=== PATIENT | female | born 1980 | race Two or more races ===

== ENCOUNTER 2020-01-04 08:00 | Inpatient (IN) | payer OTHER ==
[2020-01-10] MEDS ORDERED: ELECTROLYTE-148 SOLN 500 ML IV SCH ×2 (06:00→06:30)
[2020-01-10] MEDS ORDERED: CITRIC ACID/SODIUM CITRATE 30 ML UNIT-DOSE CUP PO ONE ×2 (06:00→09:53)
[2020-01-10 07:12] VITALS: BMI 29.2
[2020-01-10] MEDS ORDERED: ONDANSETRON 4 MG/2 ML VIAL IVPUSH PRN (07:41)
[2020-01-10] MEDS ORDERED: morphine SULFATE/PF 0.5 MG/ML (2cc Syringe - QUVA) EP ONE (07:41)
[2020-01-10] MEDS ORDERED: morphine SULFATE/Preservative Free 0.5 MG/ML (1cc Syringe) ONE (07:51)
[2020-01-10] MEDS ORDERED: ceFAZolin SODIUM 1 GM VIAL ONE (07:52)
[2020-01-10] MEDS ORDERED: OXYTOCIN 10 UNITS/ML VIAL ONE ×2 (08:44→09:17)
--- NOTE | 2020-01-10 09:39 | PN ---
Progress Note (short form) - Note Progress Note: I assisted Dr. Weber at the c/section for the entirety of the case.
--- NOTE | 2020-01-10 09:46 | HP ---
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: No: Alzheimer's, CVA, Dementia, Migraine, Multiple Sclerosis, Peripheral Neuropathy, Parkinson's, Seizure, Syncope, TIA, Vertigo, Other Cardiovascular: No: AFIB, Aneurysm, Aortic Insufficiency, Aortic Stenosis, CAD, CHF, Deep Vein Thrombosis, HTN, Hyperlipdemia, MD, Mitral Insufficiency, Mitral Stenosis, Murmur, Pulmonary Hypertension, Other Pulmonary: No: Asthma, Bronchitis, Cancer, COPD, O2 Dependent, Pneumonia, Previously Intubated, Pulmonary Embolus, Pulmonary Fibrosis, Sleep Apnea, Other Gastrointestinal: No: Ascites, Cancer, Constipation, Crohn's Disease, Diverticulitis, Diverticulosis, Esophageal Varices, Gastritis, GERD, GI Bleed, Hemorrhoids, Hiatal Hernia, Inflamatory Bowel Disease, Irritable Bowel Disease, Pancreatitis, Peptic Ulcer Disease, Ulcerative Colitis, Other Hepatobiliary: No: Cirrhosis, Cholelithiasis, Cholecystitis, Choledocholithiasis, Hepatitis A, Hepatitis B, Hepatitis C, Other Renal/: No: Renal Failure, Renal Inusuff, BPH, Cancer, Hematuria, Hemodi alysis, Neurogenic Bladder, Renal Calculi, UTI, Other Reproductive: No: Ectopic , Endometriosis, Fibroids, PID, Polycystic Ovary Syndrome, Postmenopausal, Other ...: 1 ...Para: 0 ...Term: 0 ...: 0 ...Spon : 0 ...Induced : 0 ...Living Children: 0 ...Multiple Gestation: 0 ...EDC by Sono: 01/29/20 Heme/Onc: No: Anemia, B12 Deficiency, Bleeding Disorder, Cancer, Current Chemotherapy, Current Radiation Therapy, Hemochromatosis, Hypercoaguable State, Myeloproliferative Synd, Sickle Cell Disease, Sickle Cell Trait, Thrombocytopenia, Other Infectious Disease: No: AIDS, C-Diff, Herpes Zoster, HIV, MRSA, STD's, Tuberculosis, VREF, Other Psych: No: Addictions, Anxiety, Bipolar, Depression, Panic, Psychosis, Schizophrenia, Other Musculoskeletal: No: Bursitis, Chronic low back pain, Hemiparesis, Hemiplegia, Osteoarthritis, Paraplegia, Other Rheumatology: No: Fibromyalgia, Gout, Lupus, Rheumatoid Arthritis, Sarcoidosis, Vasculitis, Other ENT: No: Allergic Rhinitis, Sinusitis, Other Endocrine: No: Sean's Disease, Rugby's Disease, Diabetes Insipidus, Diabetes Mellitus, Hyperparathyroidism, Hyperthyroidism, Hypothyroidism, Osteope patricia, SIADH, Other Dermatology: No: Basal Cell, Cellulitis, Eczema, Melanoma, Psoriasis, Squamous Cell, Other - Past Surgical History Hx Myomectomy: No Hx Transabdominal Cerclage: No Additional Surgical History: abdominal plasty - Advance Directives Advance Directives: Yes: Living Will - Smoking History Smoking history: Never smoked Have you smoked in the past 12 months: No - Alcohol/Substance Use Hx Alcohol Use: No History of Substance Use: reports: None - Social History Usual Living Arrangement: Yes: With Significant Other Do you think of yourself as: Straight/Heterosexual ADL: Independent History of Recent Travel: No Home Medications - Allergies Allergies/Adverse Reactions: Allergies Allergy/AdvReac Type Severity Reaction Status Date / Time No Known Allergies Allergy Verified 01/10/20 07:03 - Home Medications Home Medications: Ambulatory Orders Vitamins (Sjr) - 1 tab PO DAILY 01/10/20 Family Medical History Family History: Denies Review of Systems - Review of Systems Constitutional: reports: No Symptoms Eyes: reports: No Symptoms HENT: reports: No Symptoms Neck: reports: No Symptoms Cardiovascular: reports: No Symptoms Respiratory: reports: No Symptoms Gastrointestinal: reports: No Symptoms Genitourinary: reports: No Symptoms Breasts: reports: No Symptoms Reported Musculoskeletal: reports: No Symptoms Integumentary: reports: No Symptoms Neurological: reports: No Symptoms Endocrine: reports: No Symptoms Hematology/Lymphatic: reports: No Symptoms Psychiatric: reports: No Symptoms Physical Exam - Maternity Vital Signs: Vital Signs Temperature 98.3 F 01/10/20 06:30 Pulse Rate 115 H 01/10/20 06:30 Respiratory Rate 20 01/10/20 06:30 Blood Pressure 121/71 01/10/20 06:30 O2 Sat by Pulse Oximetry (%) Constitutional: Yes: Well Nourished, No Distress, Calm Eyes: Yes: WNL, Conjunctiva Clear, EOM Intact HENT: Yes: WNL, Atraumatic, Normocephalic Neck: Yes: WNL, Supple, Trachea Midline Cardiovascular: Yes: WNL, Regular Rate and Rhythm Lungs: Clear to auscultation Breast(s): Yes: WNL - Abdominal Exam/OB Fundal Height: 36 Number of Fetuses: Single Presentation: Breech Contractions: Yes Regularity: Irregular Intensity: Unaware Monitor Mode: External Heart Rate (range): 150 Heart Rate Location: [facility] Category: I Accelerations: Uniform Decelerations: None - Vaginal Exam/OB Vaginal Bleeding: No Speculum Exam: No Dilatation (cm): 1 Effacement (%): 50 Amniotic Membrane Status: Intact Presentation: Brando Breech Station: -3 - Physical Exam Musculoskeletal: Yes: WNL Extremities: Yes: WNL Edema: Yes Edema: LUE: 1+, RUE: 1+, LLE: 1+, RLE: 1+ Integumentary: Yes: WNL Deep Tendon Reflex Grade: Normal +2 ...Motor Strength: WNL Psychiatric: Yes: WNL, Alert, Oriented Hemorrhage Risk Assessment - Risk Factors Medium Risk Factors: Yes: None High Risk Factors: Yes: Placenta previa, low lying Risk Score: 3 Risk Level: High Risk Assessment/Plan: type and cross x 2 units, ready for transfusion if needed Assessment/Plan for c s ,
[2020-01-10] MEDS ORDERED: ELECTROLYTE-148 SOLN 500 ML IV ONE (09:49)
--- NOTE | 2020-01-10 09:49 | OP ---
Operative Note - Note: Operative Date: 01/10/20 Pre-Operative Diagnosis: placenta previa, breech Operation: primary lt c s Findings: placenta previa, oblique lie Post-Operative Diagnosis: Same as Pre-op Surgeon: Jerrod Weber Feltmaker: Chaim Rothman Anesthesiologist/SAFETY PERSON: Cruz Lopez Anesthesia: Spinal Estimated Blood Loss (mls): 1,000 (no complications, methergen given, ) Operative Report Dictated: Yes
[2020-01-10] MEDS ORDERED: METHYLERGONOVINE MALEATE 0.2 MG/1 ML AMP IM PRN (09:54)
[2020-01-10] MEDS ORDERED: oxyCODONE HCL 5 MG TABLET PO PRN (09:54)
[2020-01-10] MEDS ORDERED: IBUPROFEN 800 MG/8 ML IJ IVPB PRN (09:54)
[2020-01-10] MEDS ORDERED: ELECTROLYTE-148 SOLN 1,000 ML IV SCH (10:00)
[2020-01-10] MEDS ORDERED: OXYTOCIN 20 UNITS in 0.9% NS 20 UNIT/1,000 ML INFUS.BAG IV SCH (10:00)
[2020-01-10] MEDS ORDERED: OXYTOCIN 20 UNITS in 0.9% NS 20 UNIT/1,000 ML INFUS.BAG IV ONE (10:09)
--- NOTE | 2020-01-10 13:03 | OP ---
DATE OF OPERATION: 01/10/2020 PREOPERATIVE DIAGNOSIS: Placenta previa and a breech presentation. POSTOPERATIVE DIAGNOSIS: Placenta previa and oblique lie. PROCEDURE: Primary low transverse section. SURGEON: Jerrod Weber MD PRESIDENT CEO & FOUNDER: Chaim Rothman MD ANESTHESIA: Spinal. ANESTHESIOLOGIST: Cruz Lopez MD INDICATION: This is a 39-year-old female patient, 37 weeks and 2 days , has been followed with perinatologist and was known to have a placenta previa throughout the , and the patient's baby was a breech presentation until last week, and the placenta previa has been confirmed by the perinatologist, Dr. Stringer, but no accreta or percreta was seen, so patient is taken to the OR for early delivery at 37-1/2 weeks for placenta previa to prevent vaginal bleeding. Patient understands the risks, benefits, and alternatives of placenta previa and risks of transfusion, risks of a hysterectomy as a last resort were explained if the patient bleeds too much. Patient understood all the risk factors, and patient at 39 years old, she had understood that this may be the last baby she is going to have if the bleeding occurs. DESCRIPTION OF PROCEDURE: Patient was taken to the OR, placed on operating table in supine position. After the spinal anesthesia was obtained, patient's abdomen and pelvis were prepped and draped in the usual sterile manner. Patient had abdominoplasty before, so following the same abdominoplasty scar, the low transverse segment of the uterus was entered. Pfannenstiel incision was made. Patient had Prolene sutures from abdominoplasty. The Prolene sutures were removed. Fascia was nicked in the midline, the fascia extended bilaterally, and the intraperitoneal cavity was entered, and no bladder flap was created. Low transverse segment of the uterus was entered, and the baby was not in breech presentation now. Patient was in the transverse oblique lie, so we delivered the baby from the vertex presentation. Baby was handed over to the experimental mechanic outboard motors after the umbilical cord doubly clamped. Placenta was removed gently, posterior placenta, and after placenta was removed, lower segment area of cervix segment was slightly oozing, so Pitocin was given and Methergine was given, and we massaged the uterus to shrink the bleeding, and good hemostasis was observed. Then we closed the uterus in single layer. Good hemostasis, and both gutters cleaned. Both ovaries, fallopian tubes, and uterus were within normal limits. Blood loss was about 1000 mL following placenta previa. Other than that, there were no complications. Peritoneum was closed. Fascia was closed, draining clear urine, and after the procedure we inspected vaginally. No bleeding was seen vaginally, so patient was transferred to recovery room in stable condition. Methergine was given as a precaution for the reason of bleeding precaution. JERROD WEBER MD [id number]
[2020-01-10] MEDS: FERROUS SO4 325 MG TABLET (FP) PO SCH (19:18)
[2020-01-10] MEDS: PRENATAL VITAMINS W/ FOLIC ACID TABLET (FP) PO SCH (19:38)
[2020-01-10] MEDS: IBUPROFEN 600 MG TABLET (FP) PO PRN (22:51)
[2020-01-10] MEDS: ACETAMINOPHEN 325 MG TABLET (FP) PO PRN (22:52)
[2020-01-10] MEDS: SENNOSIDES/DOCUSATE COMBO (SENNA PLUS) TABLET (UD) PO PRN (22:53)
[2020-01-10] MEDS: SIMETHICONE 80 MG TAB.CHEW (FP) PO PRN (22:53)
[2020-01-11] MEDS: IBUPROFEN 600 MG TABLET (FP) PO PRN ×4 (08:13→22:57)
[2020-01-11] MEDS: FERROUS SO4 325 MG TABLET (FP) PO SCH ×2 (08:13→18:11)
[2020-01-11] MEDS: ACETAMINOPHEN 325 MG TABLET (FP) PO PRN (08:13)
[2020-01-11] MEDS: SIMETHICONE 80 MG TAB.CHEW (FP) PO PRN ×4 (08:14→22:59)
--- NOTE | 2020-01-11 08:15 | PN ---
Post Progress Note Post Day: 1 Type of Delivery: Primary C/S Vital Signs: Vital Signs Temperature 97.6 F 01/11/20 06:00 Pulse Rate 87 01/11/20 06:00 Respiratory Rate 18 01/11/20 07:00 Blood Pressure 96/56 L 01/11/20 06:00 O2 Sat by Pulse Oximetry (%) 100 01/10/20 10:30 Breast Exam: Yes: Soft Uterus: Yes: Fundus Firm, Fundus below umbilicus, Non-tender Incision: Yes: Dressing dry and intact, Sutures intact Abdomen/GI: Yes: Abdomen soft, Passing flatus, Tolerating PO Lochia: Yes: Serosa Lochia, amount: Small Extremities: Yes: Calves non-tender Perineum: Yes: Intact Activity: Ambulating (dc pt home tomorrow )
--- NOTE | 2020-01-11 08:16 | PN ---
Progress Note (short form) - Note Progress Note: Anesthesia POST/OP D#1 S/P under spinal A and DM VSS,mild pain,no N/V, mild itch, Legs fully recovered. Sera Benz MD.
--- NOTE | 2020-01-11 08:18 | DS ---
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 Vital Signs: Vital Signs Temperature 97.6 F 01/11/20 06:00 Pulse Rate 87 01/11/20 06:00 Respiratory Rate 18 01/11/20 07:00 Blood Pressure 96/56 L 01/11/20 06:00 O2 Sat by Pulse Oximetry (%) 100 01/10/20 10:30 Constitutional: Yes: Well Nourished, No Distress, Calm Eyes: Yes: WNL, Conjunctiva Clear, EOM Intact HENT: Yes: WNL, Atraumatic, Normocephalic Neck: Yes: WNL, Supple, Trachea Midline Cardiovascular: Yes: WNL, Regular Rate and Rhythm Respiratory: Yes: WNL, Regular, CTA Bilaterally Gastrointestinal: Yes: WNL, Normal Bowel Sounds, Soft ...Rectal Exam: Yes: WNL Renal/: Yes: WNL Pelvis: Yes: WNL External Genitalia: Yes: Normal Internal Exam Deferred: Yes Vaginal Exam: Yes: Normal Cervix: Yes: Normal Uterus: Yes: Normal Adnexa: Normal: Bilateral ....Post : Yes: Uterus firm, Uterus non-tender Breast(s): Yes: WNL Musculoskeletal: Yes: WNL Extremities: Yes: WNL Integumentary: Yes: WNL Wound/Incision: Yes: Clean/Dry, Well Approximated Neurological: Yes: WNL, Alert, Oriented ...Motor Strength: WNL Psychiatric: Yes: WNL, Alert, Oriented Delivery - Delivery Section: Primary Type of Anesthesia: Spinal Episiotomy/Laceration: None EBL (cc): 1,000 Delivery, Single - Stages of Labor Date of Delivery: 01/10/20 Time of Delivery: 08:50 Time Placenta Delivered: 08:51 - Condition of Infant Digital 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 Present: Yes Name: Josue Vega Infant Gender: Female Weight: 2.892 kg Total Hours ROM (Hrs/Mins): 2 - 1 Minute Total Score: 9 5 Minutes Total Score: 9 - [place] Feeding Plan Initial Plan: Elected not to breastfeed exclusively throughout hospitalization Discharge Summary Problems reviewed: Yes Reason For Visit: C/S ADMISSION Procedures: Principal: c section for placenta previa Other Procedures: none Hospital Course: uneventful Health Concerns: none Plan of Treatment: oob Condition: Good - Instructions Diet, Activity, Other Instructions: Physical activity Resume your normal everyday activity as tolerated no heavy lifting or exercise until seen by your surgeon. You may walk unlimited dorie of and climb stairs. You may resume driving the car when you feel safe and comfortable behind the wheel. No sexual activity as instructed. Wound care If you have a bandage, leave it on, and keep dry for 48-72 hours. After that time discard the outer bandage. If they are tapes on the skin under the out of bandage leave them in place. They will peel off in the next 7 to 10 days. Do Not Peel them off. You may shower the day after surgery. If there are tapes present on the skin, you may shower over them. Diet There are no dietary restrictions. Eat healthy, high-fiber foods. Drink 6 to 8 glasses of liquid each day. This will assist in keeping your bowels are regular. Pain management You may take Tylenol or acetaminophen or Ibuprofen (for example, Motrin, Advil etc.) from my pain prescription medication is ordered should be taken as prescribed for moderate to severe pain. Call MD for any of the following:call dr roach for 2 weeks appointment Severe pain not relieved by medication Fever of 101 or higher Excessive bleeding or drainage on dressing Inability to urinate Disposition: HOME - Home Medications Comprehensive Discharge Medication List: Ambulatory Orders Vitamins (Sjr) - 1 tab PO DAILY 01/10/20 Prescription Drug Monitoring Program (I-STOP) results: I-STOP reviewed and no issues identified
[2020-01-11 08:34] LABS: BASO % 0.2 % (0-2.0); HEMATOCRIT 24.5 % (32.4-45.2); HEMOGLOBIN 7.9 GM/dL (10.7-15.3); LYMPH % 11.7 % (8-40); MCH 27.2 pg (25.7-33.7); MCHC 32.2 g/dl (32.0-36.0); MEAN CELL VOLUME 84.5 fl (80-96); MEAN PLT VOLUME 8.9 fl (7.5-11.1); MONO % 7.9 % (3.8-10.2); NEUT % 79.2 % (42.8-82.8); PLATELET COUNT 179 K/MM3 (134-434); RDW 14.6 % (11.6-15.6); WHITE BLOOD COUNT 12.9 K/mm3 (4.0-10.0)
[2020-01-11] MEDS ORDERED: BISACODYL 10 MG SUPP.RECT RC PRN (09:54)
[2020-01-11] MEDS: PRENATAL VITAMINS W/ FOLIC ACID TABLET (FP) PO SCH (10:18)
[2020-01-11] MEDS: oxyCODONE HCL 5 MG TABLET PO PRN ×3 (12:27→22:56)
[2020-01-11] MEDS: SENNOSIDES/DOCUSATE COMBO (SENNA PLUS) TABLET (UD) PO PRN (22:59)
[2020-01-12] MEDS: FERROUS SO4 325 MG TABLET (FP) PO SCH (09:04)
[2020-01-12] MEDS: PRENATAL VITAMINS W/ FOLIC ACID TABLET (FP) PO SCH (09:05)
[2020-01-12] MEDS: ACETAMINOPHEN 325 MG TABLET (FP) PO PRN (09:10)
[2020-01-12 12:46] VITALS: BP 127/78; PULSE 100; TEMP 98.9
--- NOTE | 2020-01-12 13:10 | PN ---
Post Progress Note Post Day: 2 Type of Delivery: Primary C/S Vital Signs: Vital Signs Temperature 98.9 F 01/12/20 10:00 Pulse Rate 100 H 01/12/20 10:00 Respiratory Rate 16 01/12/20 10:00 Blood Pressure 127/78 01/12/20 10:00 O2 Sat by Pulse Oximetry (%) 100 01/10/20 10:30 Breast Exam: Yes: Soft Uterus: Yes: Fundus Firm, Non-tender Incision: Yes: Dressing dry and intact Abdomen/GI: Yes: Abdomen soft, Passing flatus, Tolerating PO Lochia: Yes: Serosa Lochia, amount: Small Extremities: Yes: Calves non-tender Perineum: Yes: Intact Activity: Ambulating (dc pt home today ) - Labs Labs: CBC WBC 12.9 K/mm3 (4.0-10.0) H 01/11/20 07:40 RBC 2.90 M/mm3 (3.60-5.2) L 01/11/20 07:40 Hgb 7.9 GM/dL (10.7-15.3) L 01/11/20 07:40 Hct 24.5 % (32.4-45.2) L D 01/11/20 07:40 MCV 84.5 fl (80-96) 01/11/20 07:40 MCH 27.2 pg (25.7-33.7) 01/11/20 07:40 MCHC 32.2 g/dl (32.0-36.0) 01/11/20 07:40 RDW 14.6 % (11.6-15.6) 01/11/20 07:40 Plt Count 179 K/MM3 (134-434) D 01/11/20 07:40 MPV 8.9 fl (7.5-11.1) 01/11/20 07:40 Absolute Neuts (auto) 10.2 K/mm3 (1.5-8.0) H 01/11/20 07:40 Neutrophils % 79.2 % (42.8-82.8) 01/11/20 07:40 Lymphocytes % 11.7 % (8-40) D 01/11/20 07:40 Monocytes % 7.9 % (3.8-10.2) 01/11/20 07:40 Eosinophils % 1.0 % (0-4.5) 01/11/20 07:40 Basophils % 0.2 % (0-2.0) 01/11/20 07:40 Nucleated RBC % 0 % (0-0) 01/11/20 07:40
--- NOTE | 2020-01-15 16:13 | PATH ---
Surgical Pathology Report Patient Name: МАРИНА CASTRO [facility]. Rec. 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 TRIVASCULAR CORD. MEMBRANES WITH NO DIAGNOSTIC ABNORMALITIES. Electronically Signed Yeison Mcnair M.D. Gross Description The specimen is received fresh labeled placenta and is a 497 gram, 16.0 x 15.5 x 2.7 cm. placenta with attached membranes and umbilical cord. The attached membranes are wilson, translucent with focal opacities and insert marginally. The umbilical cord measures 22 cm. in length and averages 1.3 cm. in diameter. The cord inserts eccentrically, 2.5 cm. to the nearest margin. No true knots or strictures are identified. Cut surface of the umbilical cord reveals 3 vessels. The surface is jaramillo-blue with minimal fibrin deposition and appropriate caliber vessels. The maternal surface is red-brown with focal defects. Sectioning reveals red-brown, spongy parenchyma. No lesions are identified. Sales Enablement Consultant sections are submitted in three cassettes as follows: 1- membrane rolls and umbilical cord; 2-3- full thickness sections of placenta. /01/12/2020 saudi/01/12/2020
== END 2020-01-12 11:45 | disposition home or self-care (01) | DRG 788 ==
LOC: JLDR 01-10 05:55 → J3W 01-10 14:06
PROVIDERS: ADMIT Obstetrics & Gynecology; ATTEND Obstetrics & Gynecology
PROC: 10D00Z1 Extraction of Products of Conception, Low, Open Approach (ICD-10-PCS; principal; 2020-01-10)
DX: O44.03 Complete placenta previa NOS or without hemorrhage, third trimester (principal); O64.8XX0 Obstructed labor due to other malposition and malpresentation, not applicable or unspecified; Z3A.37 37 weeks gestation of pregnancy; Z37.0 Single live birth
CPT/HCPCS: 36415; 85025; 86850; 86900; 86901; 86922; 88307-TC